=== PATIENT | female | born 1950 | race Caucasian/White ===

== ENCOUNTER 2017-02-10 21:25 | Emergency (ER) | payer BC, MEDICARE, OTHER ==
[2017-02-10 21:41] LABS: BASOPHIL# 0.1 X 10^3uL (0.0-0.1); BASOPHILS 0.5 % (0.0-2.0); EOSINOPHILS 2.4 % (0.0-6.0); EOSINOPHILS# 0.3 X 10^3uL (0.0-0.4); HEMATOCRIT 46.6 % (36.0-48.0); HEMOGLOBIN 15.9 g/dL (12.0-16.0); LYMPHOCYTES 25.3 % (20.0-40.0); LYMPHOCYTES# 3.3 X 10^3uL (0.8-3.8); MEAN CELL VOLUME 81.9 fL (80.0-100.0); MEAN CORPUSCULAR HEMOGLOBIN 27.8 pg (29.0-35.0); MONOCYTES 7.7 % (2.0-10.0); NEUTROPHILS 64.1 % (54.0-75.0); NEUTROPHILS# 8.3 X 10^3uL (2.6-6.7); PLATELET COUNT 375 X 10^3uL (130-440); RED BLOOD COUNT 5.69 X 10^6uL (4.20-6.10); RED CELL DISTRIBUTION WIDTH 15.7 % (11.5-14.5)
[2017-02-10] MEDS ORDERED: ONDANSETRON HCL 4 MG/2 ML VIAL ONE ×2 (21:45→21:49)
[2017-02-10] MEDS ORDERED: FENTANYL 250 MCG/5 ML VIAL ONE (21:46)
[2017-02-10 21:49] LABS: ALBUMIN 4.7 g/dL (3.5-5.0); ALKALINE PHOSPHATASE 132 U/L (38-126); ALT 28 U/L (9-52); AST 24 U/L (14-36); BILIRUBIN, DIRECT 0.3 mg/dL (0.0-0.4); BILIRUBIN, TOTAL 0.5 mg/dL (0.2-1.3); BLOOD UREA NITROGEN 16 mg/dL (7-17); CALCIUM 10.5 mg/dL (8.4-10.2); CHLORIDE 102 mmol/L (98-107); CREATININE 0.7 mg/dL (0.5-1.0); EST GLOMERULAR FILTRATION RATE > 60 mL/min; GLUCOSE 114 mg/dL (70-100); LIPASE 112 U/L (23-300); POTASSIUM 3.9 mmol/L (3.5-5.1); SODIUM 139 mmol/L (137-145); TOTAL PROTEIN 8.5 g/dL (6.3-8.2)
[2017-02-10] MEDS ORDERED: MAG-AL PLUS XS SUSP 30 ML UDC ONE (21:49)
[2017-02-10] MEDS ORDERED: FAMOTIDINE IN SALINE, ISO-OSM 50 ML IV ONE (21:49)
[2017-02-10] MEDS ORDERED: HYDROmorphone HCL 1 MG/ML SYR ONE (21:49)
[2017-02-10] MEDS ORDERED: LIDOCAINE VISCOUS 2% 15 ML UDC ONE (21:50)
[2017-02-10] MEDS ORDERED: LORazepam 1 MG TABLET ONE (22:29)
--- NOTE | 2017-02-10 22:30 | ER PHYSICIAN DOCUMENTATION ---
Physician Documentation [facility] Name:Kelsie Salinas Age:66 yrs Sex:Female :1950 Arrival Date:02/10/2017 Time:21:25 Bed4 Private MD:Pauline Adorno ED, John Disposition: 02/10/17 22:11 Discharged to Home/Self Care. Impression: Gastritis, Gastroenteritis, Dehydration. - Condition is Good. - Discharge Instructions: GASTRITIS (Adult), GASTROENTERITIS, Viral [6y-Adult]. - Prescriptions for Carafate 1 gram Oral Tablet - take 1 tablet by ORAL route 4 times per day take on an empty stomach, beginning on waking and last dose at bedtime; 100 tablet. Zofran 4 mg Oral Tablet - take 1-2 tablet by ORAL route every 4-6 hours As needed; 10 tablet. - Medical Reconciliation form form. - Follow up: Pauline Adorno MD; When: 1 week; Reason: Continuance of care. - Problem is new. - Symptoms have improved. - Notes: Take pepcid 20mg eveyr 12 hours for the next week. HPI: 02/10 21:44 This 66 yrs old Female presents to ER with complaints of jm Nausea/Vomiting/Diarrhea. 21:44 The patient presents to the emergency department with nausea, with vomiting, with jm diarrhea, with associated abdominal pain, of the epigastric area. Onset: The symptom(s)/episode began/occurred just prior to arrival, today. Possible causes: unknown. The symptoms are aggravated by nothing. movement, pressure. Associated signs and symptoms: Pertinent negatives: fever. Severity of symptoms: At their worst the symptoms were incapacitating in the emergency department the symptoms have improved. The patient has not experienced similar symptoms in the past. The patient has not recently seen a physician. 66 yo F who has been dealing w n/v/d for the past 2 days on and off. Today she took some milk of mag thinking it would ease her stomach and instead gave her "projectile diarrhea". She soon had very bad abdominal cramps that caused her call 911. She continues to have pain, but it is much better after fentanyl and zofran. . Historical: - Allergies: Demerol; - Home Meds: 1. Crestor oral - PMHx: HIGH CHOLESTEROL; Distal Tibia Fracture - : Comminuted and OpenRight (September 04, 2016); Distal Fibula Fracture - : Closed, Nondisplaced (September 04, 2016); - PSHx: Multiple Ortho Surgeries on leg; - Tetanus: < 10 years. - Ebola Screening: : Patient negative for fever greater than or equal to 101.5 degrees Fahrenheit, and additional compatible Ebola Virus Disease symptoms. - Immunization history: Flu Vaccine < 1 year. - Social history: Smoking status: Patient states former smoker of tobacco. Vital Signs: 21:30 BP 157 / 80; Pulse 101; Resp 17; Temp 97.9; Pulse Ox 95% on R/A; Weight 56.25 kg; rh Height 5 ft. 2 in. (157.48 cm); Pain 10/10; 22:28 BP 141 / 79; Pulse 98; Resp 15; Pulse Ox 95% on R/A; Pain 0/10; rh 21:30 Body Mass Index 22.68 (56.25 kg, 157.48 cm) rh MDM: 21:33 Patient medically screened. 02/10 21:43 Order name: CBC AUTO DIF, MDIF/RMOR IF IND; Complete Time: 21:58 EDMS 02/10 21:51 Order name: BASIC METABOLIC PANEL; Complete Time: 21:58 EDMS 02/10 21:51 Order name: HEPATIC PANEL; Complete Time: 21:58 EDMS 02/10 21:51 Order name: LIPASE; Complete Time: 21:58 EDMS 02/10 21:33 Order name: NPO; Complete Time: 21:36 Dispensed Medications: 21:36 Drug: NS 0.9% 1000 ml; Route: IV; Rate: bolus; Site: right antecubital; rh 22:13 Follow up: IV Status: Completed infusion; IV Intake: 1000ml rh 21:42 Drug: Zofran 4 mg; Route: IVP; Infused Over: 2 mins; Site: right antecubital; rh 21:48 Follow up: Response: Nausea is decreased rh 21:45 Drug: Dilaudid 0.5 mg; Route: IVP; Site: right antecubital; rh 21:48 Follow up: Response: Pain is decreased rh 21:47 Drug: GI Cocktail w/o Donnatol - (Maalox Suspension 30 ml, Lidocaine Liquid 2 % 15 ml); rh Route: PO; 22:12 Follow up: Response: Marked relief of symptoms rh 21:47 Drug: Pepcid 20 mg; Route: IVPB; Site: right antecubital; rh 22:05 Follow up: IV Status: Completed infusion; IV Intake: 50ml rh 22:27 Drug: Ativan 1mg 1 mg; Route: Sublingual; rh 22:27 Follow up: Response: Pharmacy closed - take home med pack rh Signatures: Wallace Licea MD MD jm Hofsess, Rachel
--- NOTE | 2017-02-10 22:30 | ER NURSING DOCUMENTATION ---
Nurse's Notes [facility] Name:Kelsie Salinas Age:66 yrs Sex:Female :1950 Arrival Date:02/10/2017 Time:21:25 Bed4 Private MD:Pauline Adorno Diagnosis:Gastritis;Gastroenteritis;Dehydration Presentation: 02/10 21:34 Acuity: HAMLET 2 21:49 Presenting complaint: EMS states: N/V/D for one day. Tonight patient took milk of mag rh for her diarrhea and then had severe abdominal cramping soon after. Pt c/o nausea, epigastric pain and diarrhea tonight. Transition of care: Home. 21:49 Method Of Arrival: EMS: 410 rh Triage Assessment: 21:51 General: Appears in no apparent distress, Behavior is cooperative. Pain: Complains of rh pain in epigastric area and right upper quadrant Quality of pain is described as stabbing. EENT: Oral mucosa is dry. Neuro: Level of Consciousness is awake, alert, obeys commands, Oriented to person, place, time, event. Cardiovascular: Capillary refill < 3 seconds Chest pain is denied. Respiratory: Airway is patent Respiratory effort is even, unlabored, Respiratory pattern is regular, symmetrical, Denies shortness of breath. GI: Abdomen is non- distended Bowel sounds present X 4 quads. Abdomen is tender to palpation in epigastric area and right upper quadrant Reports cramping, diarrhea, epigastric pain, nausea, vomiting. : Denies burning with urination. Derm: Skin is intact, is healthy with good turgor, Skin is pink, warm & dry. Musculoskeletal: Circulation, motion, and sensation intact. Historical: - Allergies: Demerol; - Home Meds: 1. Crestor oral - PMHx: HIGH CHOLESTEROL; Distal Tibia Fracture - : Comminuted and OpenRight (September 04, 2016); Distal Fibula Fracture - : Closed, Nondisplaced (September 04, 2016); - PSHx: Multiple Ortho Surgeries on leg; - Tetanus: < 10 years. - Ebola Screening: : Patient negative for fever greater than or equal to 101.5 degrees Fahrenheit, and additional compatible Ebola Virus Disease symptoms. - Immunization history: Flu Vaccine < 1 year. - Social history: Smoking status: Patient states former smoker of tobacco. Screenin:54 Infectious Disease Risk None. Abuse screen: Denies threats or abuse. Denies injuries rh from another. Nutritional screening: No deficits noted. Assessment: 21:54 See Triage Assessment done by same RN. rh Vital Signs: 21:30 BP 157 / 80; Pulse 101; Resp 17; Temp 97.9; Pulse Ox 95% on R/A; Weight 56.25 kg; rh Height 5 ft. 2 in. (157.48 cm); Pain 10/10; 22:28 BP 141 / 79; Pulse 98; Resp 15; Pulse Ox 95% on R/A; Pain 0/10; rh 21:30 Body Mass Index 22.68 (56.25 kg, 157.48 cm) rh ED Course: 21:26 Patient arrived in ED. em2 21:26 Pauline Adorno MD is Private Physician. em2 21:29 Maintain field IV. Site clean & dry. Gauge & site: 18 G R AC. rh 21:30 Notified ED Physician of patient's arrival and chief complaint. Dr. Licea notified. rh 21:32 Door closed. Lights dimmed. Warm blanket given. Pillow given. rh 21:33 Wallace Licea MD is Attending Physician. kalia 21:34 Isha Madsen is Primary Nurse. rh 21:34 Triage completed. rh 21:54 Valuables Remains with patient Patient has correct armband on for positive rh identification. Placed in gown. Bed in low position. Call light in reach. Side rails up X 1. Pulse ox on. Family accompanied patient. 22:11 Pauline Adorno MD is Referral Physician. kalia Administered Medications: 21:36 Drug: NS 0.9% 1000 ml; Route: IV; Rate: bolus; Site: right antecubital; rh 22:13 Follow up: IV Status: Completed infusion; IV Intake: 1000ml rh 21:42 Drug: Zofran 4 mg; Route: IVP; Infused Over: 2 mins; Site: right antecubital; rh 21:48 Follow up: Response: Nausea is decreased rh 21:45 Drug: Dilaudid 0.5 mg; Route: IVP; Site: right antecubital; rh 21:48 Follow up: Response: Pain is decreased rh 21:47 Drug: GI Cocktail w/o Donnatol - (Maalox Suspension 30 ml, Lidocaine Liquid 2 % 15 ml); rh Route: PO; 22:12 Follow up: Response: Marked relief of symptoms rh 21:47 Drug: Pepcid 20 mg; Route: IVPB; Site: right antecubital; rh 22:05 Follow up: IV Status: Completed infusion; IV Intake: 50ml rh 22:27 Drug: Ativan 1mg 1 mg; Route: Sublingual; rh 22:27 Follow up: Response: Pharmacy closed - take home med pack rh Intake: 22:05 IV: 50ml; Total: 50ml. rh 22:13 IV: 1000ml; Total: 1050ml. rh Outcome: 22:11 Discharge ordered by . kalia 22:28 Discharged to home via wheelchair, with friend. 22:28 Condition: improved 22:28 Discharge instructions given to patient, friend, Instructed on discharge instructions, follow up and referral plans. medication usage, Demonstrated understanding of instructions, medications, Prescriptions given X 2. 22:28 IV D/Ned 22:29 Patient left the ED. Signatures: Wallace Licea MD MD jm Meinking-reg, Ellen-reg Isha Castillo
== END 2017-02-10 22:30 | disposition home or self-care (01) ==
LOC: ER 21:25
DX: K29.70 Gastritis, unspecified, without bleeding (principal); K52.89 Other specified noninfective gastroenteritis and colitis; E86.0 Dehydration; Z79.899 Other long term (current) drug therapy
CPT/HCPCS: 80048; 80076; 83690; 85025; 96365; 96375; 99284; J1170; J2405

== ENCOUNTER 2017-02-15 23:03 | Observation (INO) | payer BC, MEDICARE, OTHER ==
[2017-02-15] MEDS ORDERED: FENTANYL 250 MCG/5 ML VIAL ONE (23:24)
[2017-02-15] MEDS ORDERED: FAMOTIDINE IN SALINE, ISO-OSM 50 ML IV ONE (23:34)
[2017-02-15] MEDS ORDERED: LIDOCAINE VISCOUS 2% 15 ML UDC ONE (23:34)
[2017-02-15] MEDS ORDERED: MAG-AL PLUS XS SUSP 30 ML UDC ONE (23:34)
[2017-02-15 23:37] LABS: BASOPHIL# 0.1 X 10^3uL (0.0-0.1); BASOPHILS 0.7 % (0.0-2.0); EOSINOPHILS 3.9 % (0.0-6.0); EOSINOPHILS# 0.4 X 10^3uL (0.0-0.4); HEMATOCRIT 45.5 % (36.0-48.0); HEMOGLOBIN 14.9 g/dL (12.0-16.0); LYMPHOCYTES 31.3 % (20.0-40.0); MEAN CELL VOLUME 82.3 fL (80.0-100.0); MEAN CORPUS. HGB CONCENTRATION 32.8 g/dL (32.0-36.0); MEAN PLATELET VOLUME 8.6 fL (7.4-10.4); MONOCYTES 7.6 % (2.0-10.0); MONOCYTES# 0.7 X 10^3uL (0.2-1.0); NEUTROPHILS 56.5 % (54.0-75.0); NEUTROPHILS# 5.4 X 10^3uL (2.6-6.7); PLATELET COUNT 434 X 10^3uL (130-440); RED BLOOD COUNT 5.52 X 10^6uL (4.20-6.10); RED CELL DISTRIBUTION WIDTH 15.9 % (11.5-14.5); WHITE BLOOD COUNT 9.6 X 10^3uL (3.9-10.7)
[2017-02-15 23:52] LABS: ALBUMIN 4.4 g/dL (3.5-5.0); ALKALINE PHOSPHATASE 133 U/L (38-126); ALT 33 U/L (9-52); AST 23 U/L (14-36); BILIRUBIN, DIRECT 0.1 mg/dL (0.0-0.4); BILIRUBIN, TOTAL 0.4 mg/dL (0.2-1.3); BLOOD UREA NITROGEN 20 mg/dL (7-17); CALCIUM 10.2 mg/dL (8.4-10.2); CHLORIDE 103 mmol/L (98-107); CREATININE 0.6 mg/dL (0.5-1.0); EST GLOMERULAR FILTRATION RATE > 60 mL/min; GLUCOSE 100 mg/dL (70-100); LIPASE 116 U/L (23-300); POTASSIUM 3.8 mmol/L (3.5-5.1); SODIUM 139 mmol/L (137-145); TOTAL PROTEIN 7.8 g/dL (6.3-8.2)
[2017-02-15] MEDS ORDERED: HYDROmorphone HCL 1 MG/ML SYR ONE (23:59)
[2017-02-16] MEDS ORDERED: HYDROmorphone HCL 1 MG/ML SYR ONE ×5 (00:14→14:23)
--- NOTE | 2017-02-16 00:57 | CT REPORT ---
HISTORY: Epigastric pain, distended abdomen for one week. COMPARISON: None. TECHNIQUE: This examination was performed using automated exposure control, adjustment of mA or kV according to patient size, and/or use of iterative reconstruction technique. Multiple contiguous axial images were obtained from the lung bases through the pubic symphysis following administration of intravenous con trast. 100cc Isovue 300 contrast. FINDINGS: The visualized lung parenchyma and cardiac structures are unremarkable. Abdomen/pelvis: The liver is normal in appearance without a mass or evidence of intrahepatic ductal d ilatation. There are multiple calcified gallstones within the gallbladder. The gallbladder is at the upper limits of normal size. The spleen is normal in appearance. There is no pancreatic mass or ductal dilatation. The adrenal glands are unremarkable. The right an d left kidneys are normal in appearance. No mass or hydronephrosis is noted. The stomach and small bowel are unremarkable. There is descending and sigmoid colon diverticulosis bu t there is no focus of acute diverticulitis. There is no abnormally dilated colon. The appendix is no rmal. No significant free fluid is noted. There is no mesenteric edema or inflammatory process. There is minimal aortic atherosclerosis withou t aneurysm. No pathologic adenopathy is identified. There is severe degenerative disc disease at L2 -3. IMPRESSION: 1. Cholelithiasis with gallbladder at upper limit of normal size. Clinical correlation with acute cho lecystitis symptoms is needed. Right upper quadrant ultrasound may provide more information if indica priya clinically. 2. Normal appendix. 3. Colonic diverticulosis. Results were discussed with Dr. Licea at 12:54 AM 02/16/2017. Final Electronic Signature: This report was electronically signed by Ernesto Burns MD on 02/16/2017 12 :54 AM. tparadis /
[2017-02-16] MEDS ORDERED: NALOXONE HCL 0.4 MG/ML VIAL IV PRN ×2 (01:11→12:03)
[2017-02-16] MEDS ORDERED: HOME MEDICATION LIST NEEDED 1 EA EACH MISC ONE (01:11)
[2017-02-16] MEDS ORDERED: DIAZEPAM 10 MG/2 ML SYR ONE (01:22)
[2017-02-16] MEDS ORDERED: NORMAL SALINE 100 ML IV ONE (01:23)
[2017-02-16] MEDS ORDERED: PIPERACILLIN /TAZO 3.375 GM/10 ML VIAL IV ONE (01:23)
[2017-02-16] MEDS ORDERED: NORMAL SALINE 1,000 ML IV SCH ×2 (02:00→12:03)
[2017-02-16] MEDS: HYDROmorphone HCL PCA 6 MG/30 ML PCA.VIAL IV PRN ×2 (02:30→08:48)
--- NOTE | 2017-02-16 02:37 | ER PHYSICIAN DOCUMENTATION ---
Physician Documentation [facility] Name:Kelsie Salinas Age:66 yrs Sex:Female :1950 Arrival Date:02/15/2017 Time:23:03 BedTrauma-C Private MD:Pauline Adorno ED, John Disposition: 02/16/17 01:09 Admit ordered for Dinesh Ramos. Preliminary diagnosis is Cholelithiasis. - Bed requested for Medical/Surgical. - Condition is Fair. - Problem is new. - Symptoms are unchanged. 23 HR OBS Yes HPI: 02/16 01:01 This 66 yrs old Female presents to ER via EMS with complaints of Chest Pain. jm 01:01 The patient or guardian reports chest pain that is located primarily in the epigastric jm area. Onset: today, at 21:00. The pain radiates to There has been no movement of pain. Associated signs and symptoms: Pertinent positives: nausea, vomiting. The chest pain is described as crushing, sharp. Duration: The patient or guardian reports a single episode, that is still ongoing. Modifying factors: the symptoms are aggravated by nothing. Severity of pain: in the emergency department the pain is unchanged. Risk factors for coronary artery disease include: This patient does not have any risk factors for coronary artery disease. The patient has experienced a previous episode, last week, and the symptoms today are exactly the same. The patient has been recently seen at the [facility] Emergency Department, last week, for similar complaints labs were performed, I thought pain was GI related as she got better w GI cocktail. The started up again about 2 hours after the pt scarffed down 2 grilled brats. . Historical: - Allergies: Demerol; - Home Meds: 1. Crestor oral 2. Zoloft Oral 3. Lorazepam Oral 4. gabapentin oral 5. Zofran Oral 6. meloxican 7. Valacyclovir Oral - PMHx: ANXIETY; hyperlipidemia; - Tetanus: < 10 years. - Ebola Screening: : Patient denies exposure to infectious person. Patient denies travel to an Ebola-affected area in the 21 days before illness onset. . - Immunization history: Unable to Obtain. - Social history: Smoking status: Patient states was never smoker of tobacco. Patient uses alcohol occasionally. ROS: 01:04 Constitutional: Negative for fatigue, fever. jm 01:04 Eyes: Negative for pain. 01:04 Cardiovascular: Negative for chest pain, palpitations. 01:04 Respiratory: Negative for cough, shortness of breath. 01:04 Abdomen/GI: Positive for abdominal pain, nausea, vomiting, Negative for diarrhea, constipation. 01:04 Skin: Negative for jaundice. 01:04 Neuro: Negative for dizziness, weakness. 01:04 All other systems are negative. Exam: 01:04 Constitutional: The patient appears alert, awake, anxious, obese. jm 01:04 Eyes: Periorbital structures: appear normal, Conjunctiva: normal. 01:04 ENT: Mouth: is normal, Voice: is normal. 01:04 Cardiovascular: Rate: 01:04 Cardiovascular: Rate: tachycardic, Rhythm: regular. 01:04 Respiratory: Respirations: normal, Breath sounds: are normal. 01:04 Abdomen/GI: Bowel sounds: normal, Palpation: severe abdominal tenderness, in the epigastric area and right upper quadrant. 01:04 Back: ROM is normal, CVA tenderness, is absent. 01:04 Musculoskeletal/extremity: DVT Exam: No signs of deep vein thrombosis. Calves: are non-tender, have equal circumference. 01:04 Skin: Appearance: Color: pink, no rash present. 01:04 Neuro: Mentation: is normal, Memory: is normal. 01:04 Psych: Behavior/mood is pleasant, cooperative, Affect is calm. Vital Signs: 02/15 23:32 BP 148 / 84; Pulse 95; Resp 20; Pulse Ox 95% on R/A; Weight 49.9 kg; Height 5 ft. 3 in. lb (160.02 cm); Pain 8/10; 02/16 00:07 BP 158 / 79; Pulse 93; Resp 20; Pulse Ox 93% on R/A; lb 00:47 BP 153 / 82; Pulse 99; Resp 18; Pulse Ox 92% on R/A; Pain 7/10; lb 01:34 BP 165 / 91; Pulse 104; Resp 22; Pulse Ox 95% on R/A; Pain 4/10; lb 01:43 Temp 98; lb 02:35 BP 156 / 88; Pulse 90; Resp 19; Pulse Ox 94% on R/A; Pain 5/10; lb 02/15 23:32 Body Mass Index 19.49 (49.90 kg, 160.02 cm) lb MDM: 02/15 23:35 EKG attached lb 23:40 Patient medically screened. 02/16 01:06 Differential diagnosis: chest wall pain, cholecystitis, Cholelithiasis gastritis, jm gastroesophageal reflux disease (GERD), pancreatitis, peptic ulcer disease. Data reviewed: vital signs, nurses notes, old medical records, lab test result(s), EKG, radiologic studies, and as a result, I will admit patient. Test interpretation: by ED physician or midlevel provider: ECG. Counseling: I had a detailed discussion with the patient and/or guardian regarding: the historical points, exam findings, and any diagnostic results supporting the discharge/admit diagnosis, lab results, radiology results, the need for further work-up and treatment in the hospital. ECG:. Medication response: The patient's symptoms have improved, Dilaudid. Physician consultation: Dinesh Ramos MD regarding admission, and will see patient in the AM. ED course: Pt is excruciating pain. Hard to control. Multiple round of Dilaudid given. CT shows evidence of chololithiases w gall bladder on the upper limit of normal. I feel this is source for pain. Pt got no relief from GI cocktail and labs normal. I spoke w Dr. Ramos. He will see her in the AM and decide if she needs surgery. . 02/15 23:43 Order name: CBC AUTO DIF, MDIF/RMOR IF IND; Complete Time: 23:55 EDMS 02/15 23:55 Order name: BASIC METABOLIC PANEL; Complete Time: 23:55 EDMS 02/15 23:55 Order name: HEPATIC PANEL; Complete Time: 23:55 EDMS 02/15 23:55 Order name: LIPASE; Complete Time: 23:55 EDMS 02/16 00:01 Order name: H PYLORI IGG ANTIBODY; Complete Time: 00:57 EDMS 02/16 00:58 Order name: CAT SCAN; ABD/PEL W [id number] EDMS EC:06 Rhythm is regular. QRS [place] is Normal. OK interval is normal. QRS interval is normal. QT interval is normal. T waves are Normal. No ST changes noted. Dispensed Medications: 02/15 23:28 Drug: GI Cocktail w/o Donnatol - (Maalox Suspension 30 ml, Lidocaine Liquid 2 % 15 ml); lb Route: PO; 23:56 Follow up: Response: No change in condition lb 23:28 Drug: Pepcid 20 mg; Route: IVPB; Site: right antecubital; lb 23:56 Follow up: IV Status: Completed infusion; IV Intake: 50ml lb 23:57 Follow up: Response: No change in condition lb 23:50 Drug: Dilaudid 1 mg; Route: IVP; Site: right antecubital; lb 02/16 00:07 Follow up: Response: Pain is unchanged, physician notified lb 00:06 Drug: Dilaudid 1 mg; Route: IVP; Site: right antecubital; lb 00:46 Follow up: Response: No change in condition lb 00:47 Drug: Dilaudid 1 mg; Route: IVP; Site: right antecubital; lb 01:33 Follow up: Response: Pain is decreased lb 01:18 Drug: Dilaudid 1 mg; Route: IVP; Site: right antecubital; lb 01:33 Follow up: Response: Pain is decreased lb 01:19 Drug: Valium 5 mg; Route: IVP; Site: right antecubital; lb 01:33 Follow up: Response: Anxiety decreased lb 01:32 Drug: Zosyn 3.375 grams; Route: IVPB; Site: right antecubital; lb 01:56 Follow up: Response: No adverse reaction; IV Status: Completed infusion; IV Intake: lb 100ml 01:33 Drug: NS 0.9% 500 ml; Route: IV; Rate: bolus; Site: right antecubital; lb 02:34 Follow up: IV Status: Infusion continued upon admission; IV Intake: 500ml lb 02:02 Drug: Dilaudid 1 mg; Route: IVP; Site: right antecubital; lb 02:34 Follow up: Response: Pain is decreased lb Signatures: Wallace Licea MD MD jm Bollock, Lynda lb
--- NOTE | 2017-02-16 02:37 | ER NURSING DOCUMENTATION ---
Nurse's Notes [facility] Name:Kelsie Salinas Age:66 yrs Sex:Female :1950 Arrival Date:02/15/2017 Time:23:03 BedTrauma-C Private MD:Pauline Adorno Diagnosis:Cholelithiasis Presentation: 02/15 23:19 Acuity: HAMLET 3 lb 23:29 Presenting complaint: Patient states: epigastric pain that started suddenly at 9pm. c/o lb nausea, headache. Transition of care: Home. AIR CAT ACTIVATION no. Asprin Given n/a. Notified ED Physician of Vinayak Fields notified. Care prior to arrival: Medication(s) given: Fentanyl 100MCG. 23:29 Method Of Arrival: EMS: 410 lb Triage Assessment: 23:32 General: Appears distressed, uncomfortable, Behavior is anxious. Pain: Complains of lb pain in diaphragm Pain does not radiate. Pain currently is 8 out of 10 on a pain scale. Cardiovascular: No deficits noted. Historical: - Allergies: Demerol; - Home Meds: 1. Crestor oral 2. Zoloft Oral 3. Lorazepam Oral 4. gabapentin oral 5. Zofran Oral 6. meloxican 7. Valacyclovir Oral - PMHx: ANXIETY; hyperlipidemia; - Tetanus: < 10 years. - Ebola Screening: : Patient denies exposure to infectious person. Patient denies travel to an Ebola-affected area in the 21 days before illness onset. . - Immunization history: Unable to Obtain. - Social history: Smoking status: Patient states was never smoker of tobacco. Patient uses alcohol occasionally. Screenin:33 Infectious Disease Risk None. Abuse screen: Denies threats or abuse. Denies injuries lb from another. Nutritional screening: No deficits noted. Assessment: 23:33 See Triage Assessment done by same RN. Pain: Pain began 2 hours ago. lb 23:33 Pain: Complains of pain in diaphragm. lb Vital Signs: 23:32 BP 148 / 84; Pulse 95; Resp 20; Pulse Ox 95% on R/A; Weight 49.9 kg; Height 5 ft. 3 in. lb (160.02 cm); Pain 8/10; 02/16 00:07 BP 158 / 79; Pulse 93; Resp 20; Pulse Ox 93% on R/A; lb 00:47 BP 153 / 82; Pulse 99; Resp 18; Pulse Ox 92% on R/A; Pain 7/10; lb 01:34 BP 165 / 91; Pulse 104; Resp 22; Pulse Ox 95% on R/A; Pain 4/10; lb 01:43 Temp 98; lb 02:35 BP 156 / 88; Pulse 90; Resp 19; Pulse Ox 94% on R/A; Pain 5/10; lb 02/15 23:32 Body Mass Index 19.49 (49.90 kg, 160.02 cm) lb ED Course: 02/15 23:03 Patient arrived in ED. ma1 23:03 Pauline Adorno MD is Private Physician. ma1 23:19 Angeles Patel is Primary Nurse. lb 23:20 Triage completed. lb 23:33 Valuables Remains with patient. Cardiac Monitoring On for Nurse Monitoring only. Pulse lb Ox - RN Monitoring Only NIBP On - RN Monitoring Only. 23:34 EKG done per protocol. Performed by ED Staff. lb 23:35 EKG attached lb 23:40 Wallace Licea MD is Attending Physician. kalia 02/16 00:16 Patient moved to MRI. Patient moved to CT. pm1 00:[address] pm1 01:08 Dinesh Ramos MD is Admitting Physician. Administered Medications: 02/15 23:28 Drug: GI Cocktail w/o Donnatol - (Maalox Suspension 30 ml, Lidocaine Liquid 2 % 15 ml); lb Route: PO; 23:56 Follow up: Response: No change in condition lb 23:28 Drug: Pepcid 20 mg; Route: IVPB; Site: right antecubital; lb 23:56 Follow up: IV Status: Completed infusion; IV Intake: 50ml lb 23:57 Follow up: Response: No change in condition lb 23:50 Drug: Dilaudid 1 mg; Route: IVP; Site: right antecubital; lb 02/16 00:07 Follow up: Response: Pain is unchanged, physician notified lb 00:06 Drug: Dilaudid 1 mg; Route: IVP; Site: right antecubital; lb 00:46 Follow up: Response: No change in condition lb 00:47 Drug: Dilaudid 1 mg; Route: IVP; Site: right antecubital; lb 01:33 Follow up: Response: Pain is decreased lb 01:18 Drug: Dilaudid 1 mg; Route: IVP; Site: right antecubital; lb 01:33 Follow up: Response: Pain is decreased lb 01:19 Drug: Valium 5 mg; Route: IVP; Site: right antecubital; lb 01:33 Follow up: Response: Anxiety decreased lb 01:32 Drug: Zosyn 3.375 grams; Route: IVPB; Site: right antecubital; lb 01:56 Follow up: Response: No adverse reaction; IV Status: Completed infusion; IV Intake: lb 100ml 01:33 Drug: NS 0.9% 500 ml; Route: IV; Rate: bolus; Site: right antecubital; lb 02:34 Follow up: IV Status: Infusion continued upon admission; IV Intake: 500ml lb 02:02 Drug: Dilaudid 1 mg; Route: IVP; Site: right antecubital; lb 02:34 Follow up: Response: Pain is decreased lb Intake: 02/15 23:56 IV: 50ml; Total: 50ml. lb 02/16 01:56 IV: 100ml; Total: 150ml. lb 02:34 IV: 500ml; Total: 650ml. lb Outcome: 01:09 Decision to Admit by Provider. kalia 02:35 Admitted to Med/surg accompanied by nurse, via stretcher. lb 02:35 Condition: stable 02:35 Report given to Yudith KENNY 02:35 Discharge Assessment: Patient awake, alert and oriented x 3. No cognitive and/or functional deficits noted. Patient verbalized understanding of disposition instructions. 02:35 Instructed on need to admit 02:36 Patient left the ED. lb Signatures: Wallace Licea MD MD jm McBride, Philisha pm1 Angeles Patel Melissa ma1
[2017-02-16] MEDS: ONDANSETRON HCL 4 MG/2 ML VIAL IV ONE ×2 (06:29→06:50)
[2017-02-16] MEDS ORDERED: ONDANSETRON HCL 4 MG/2 ML VIAL ONE ×2 (06:30→14:58)
[2017-02-16] MEDS ORDERED: LORazepam 2 MG/ML INJ IV PRN ×2 (10:06→12:03)
[2017-02-16] MEDS ORDERED: ONDANSETRON HCL 4 MG/2 ML VIAL IV ONE ×2 (11:44→12:03)
[2017-02-16] MEDS ORDERED: LIDOCAINE HCL 1% 20 ML VIAL SUBCUT ONE ×2 (11:44→12:03)
[2017-02-16] MEDS ORDERED: FAMOTIDINE IN SALINE, ISO-OSM 20 MG/50 ML PIGGYBACK IV SCH ×2 (11:45→12:03)
[2017-02-16] MEDS ORDERED: NORMAL SALINE MINI IV ONE (11:52)
[2017-02-16] MEDS ORDERED: CEFAZOLIN IV ONE (11:52)
[2017-02-16] MEDS ORDERED: LACTATED RINGERS 1,000 ML IV SCH (12:00)
[2017-02-16] MEDS ORDERED: HYDROmorphone HCL PCA 6 MG/30 ML PCA.VIAL IV PRN (12:03)
[2017-02-16] MEDS ORDERED: MORPHINE SULFATE 2 MG/ML SYR IV PRN (12:03)
[2017-02-16] MEDS ORDERED: ONDANSETRON ODT 4 MG TAB.RAPDIS PO PRN (12:03)
[2017-02-16] MEDS ORDERED: HYDROcodone/APAP 10/325 MG 1 TAB TABLET PO PRN (12:03)
[2017-02-16] MEDS ORDERED: ceFAZolin/DEXTROSE,ISO 2 GM/50 ML PIGGYBACK IV ONE ×2 (12:04→13:00)
[2017-02-16] MEDS ORDERED: FENTANYL 250 MCG/5 ML VIAL ONE (12:22)
[2017-02-16] MEDS ORDERED: DEXAMETHASONE 4 MG/ML VIAL ONE (12:22)
[2017-02-16] MEDS ORDERED: SUCCINYLCHOLINE CHLORIDE 200 MG/10 ML VIAL ONE (12:22)
[2017-02-16] MEDS ORDERED: ROCURONIUM BROMIDE 50 MG/5 ML VIAL IV ONE (12:22)
[2017-02-16] MEDS ORDERED: LIDOCAINE HCL 2% 20 ML VIAL ONE (12:22)
[2017-02-16] MEDS ORDERED: BUPIVACAINE/EPI 0.25% 1 VIAL VIAL ONE (12:30)
[2017-02-16] MEDS ORDERED: SUGAMMADEX SODIUM 200 MG/2 ML VIAL IV ONE (13:39)
[2017-02-16] MEDS ORDERED: DESFLURANE 240 ML BTL INHALATION ONE (13:57)
[2017-02-16] MEDS ORDERED: METOCLOPRAMIDE HCL 10 MG/2 ML VIAL IV ONE (14:10)
[2017-02-16] MEDS ORDERED: KETOROLAC TROMETHAMINE 30 MG/ML VIAL ONE (14:24)
[2017-02-16] MEDS ORDERED: METOCLOPRAMIDE HCL 10 MG/2 ML VIAL ONE (14:26)
[2017-02-16] MEDS ORDERED: HYDROmorphone HCL 1 MG/ML SYR IV PRN (14:50)
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
[2017-02-16] MEDS ORDERED: ONDANSETRON HCL 4 MG/2 ML VIAL IV PRN (14:54)
[2017-02-16] MEDS ORDERED: KETOROLAC TROMETHAMINE 30 MG/ML VIAL IV ONE (14:54)
--- NOTE | 2017-02-16 15:25 | OPERATIVE REPORT ---
DATE OF SURGERY: 02/16/17 SURGEON: Dinesh Ramos MD PREOPERATIVE DIAGNOSIS: Acute cholecystitis. POSTOPERATIVE DIAGNOSIS: Acute cholecystitis. Large stone lodged in the neck of the gallbladder. Significant edema and scarring making the anatomy difficult. PROCEDURE PERFORMED 1. Laparoscopic cholecystectomy. 2. Drain placement to the abdomen. DESCRIPTION OF PROCEDURE: The patient was given a general anesthetic. She was prepped and draped in sterile fashion. Local was placed in the port sites. An opening was made through the umbilicus. A blunt dilating trocar was gently inserted away from vasculature without injury. The abdomen was inflated to 50 mm of pressure. Additional trocars were then placed in the epigastrium at 12 and 2 right subcostal 5 mm ports. The gallbladder was grasped and elevated over the liver edge and the neck of the gallbladder was retracted lateral somewhat inferior to open up the hepatocystic triangle. This was difficult due to the fact the graspers were not holding well and had to be repeatedly regrasped. In addition, the tissues were very thickened, scarred and edematous and this di make the anatomy was very difficult. I spent some time carefully dissecting this area in a blunt fashion. The artery was identified and this was controlled with the Harmonic scalpel. I noted a duct going into the gallbladder that was about 10 mm in size , but I could not tell if it would continue to the liver and be the right hepatic due to the scarring still present on the medial side of the neck of the gallbladder. At that point I elected to take the gallbladder down retrograde to confirm the anatomy. The gallbladder was removed opening up the thick peel and retracting the gallbladder inferiorly and laterally until it was skinnied down to the neck and I could not note any other ductal structures other than the one I previously identified. At that point 3 clips were placed. These just did cover the entire duct and the gallbladder was divided and at that point I could see we were flush with the gallbladder and there was a stone present directly visible right at that location that was lodged into the neck of the gallbladder. The gallbladder was placed into a sack and retrieved and sent to pathology. Several liters of irrigation were then utilized until it was clear oozing from the bed had stopped on its own and no further bleeding was noted. blood loss was 70 cc. A drain was brought out through the lateral incision and placed in Morrisons pouch in the subhepatic region and tied in with a silk suture. The abdomen was then deflated. The port sites were closed at the larger sites with a deep Vicryl and a 4-0 Monocryl for the skin layers. She remained stable throughout the case although she did require additional anesthetic during the case. She was taken to the recovery room in stable condition. AVILA
[2017-02-16] MEDS: LORazepam 1 MG TABLET PO SCH ×2 (17:33→20:07)
[2017-02-16] MEDS: GABAPENTIN 300 MG CAPSULE PO SCH ×2 (17:33→20:07)
[2017-02-16] MEDS: LACTATED RINGERS 1,000 ML IV SCH (18:51)
[2017-02-16] MEDS: HYDROcodone/APAP 5/325 MG 1 TAB TABLET PO PRN (20:07)
[2017-02-17] MEDS: ACETAMINOPHEN 325 MG TABLET PO PRN (02:27)
[2017-02-17] MEDS ORDERED: ACETAMINOPHEN 325 MG TABLET PO ONE (02:34)
[2017-02-17] MEDS: LACTATED RINGERS 1,000 ML IV SCH (03:02)
[2017-02-17] MEDS: HYDROcodone/APAP 5/325 MG 1 TAB TABLET PO PRN (07:45)
[2017-02-17] MEDS: LORazepam 1 MG TABLET PO SCH (09:45)
[2017-02-17] MEDS: GABAPENTIN 300 MG CAPSULE PO SCH ×3 (09:45→20:28)
[2017-02-17] MEDS: SERTRALINE HCL 50 MG TABLET PO SCH (09:45)
[2017-02-17] MEDS ORDERED: MAGNESIUM HYDROXIDE 30 ML UDC PO PRN (09:51)
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
[2017-02-17] MEDS: MELOXICAM 7.5 MG TABLET PO SCH (10:20)
[2017-02-17] MEDS ORDERED: LORazepam 0.5 MG TABLET PO PRN (11:46)
[2017-02-17] MEDS ORDERED: SENNOSIDES/DOCUSATE SODIUM 1 TAB TABLET PO ONE (18:35)
[2017-02-17] MEDS: SENNOSIDES/DOCUSATE SODIUM 1 TAB TABLET PO SCH (20:27)
[2017-02-18 05:37] VITALS: BP 129/61; PULSE 92; RESP 17; TEMP 97.5
[2017-02-18] MEDS: ACETAMINOPHEN 325 MG TABLET PO PRN ×2 (05:37→09:23)
[2017-02-18] MEDS: MELOXICAM 7.5 MG TABLET PO SCH (09:16)
[2017-02-18] MEDS: GABAPENTIN 300 MG CAPSULE PO SCH (09:20)
[2017-02-18] MEDS: SENNOSIDES/DOCUSATE SODIUM 1 TAB TABLET PO SCH (09:22)
[2017-02-18] MEDS: SERTRALINE HCL 50 MG TABLET PO SCH (09:24)
[2017-02-18 09:37] VITALS: O2SAT 94
--- NOTE | 2017-02-18 10:04 | DC SUMMARY: Gen Surgery Note ---
Discharge Summary: Surg/OB Provider: Date of Admission: 02/16/17 Admitting Provider: SCAR GERER MD Attending Provider: SCAR GREER MD Discharging Provider: TAIWO ARRINGTON MD Primary Care Provider: Discharge Date: 02/18/17 - Diagnosis (1) Postoperative ileus Status: Resolved (2) Type I or II open fracture of right tibial plafond with fibula involvement Status: Resolved Qualifiers: (3) Stress incontinence of urine Status: Chronic Hospital Course: Ms. YUN is a 66 year old female admitted with acute cholecystitis on 02/16/17. She underwent lap. choly on . She had problems with pain control on 02/17/17 but was able to tolerate po pain meds and began to move her bowels. She will be discharged today with a FADY drain in place. She will follow up with me on 02/18/17. Discharge - Patient/Caregiver Discharge Instructions Activity Level: No lifting over 20 pounds Diet: As tolerated Additional Instructions: Empty the drain as needed. Follow up: TAIWO ARRINGTON MD [ACTIVE (Staff Physician)] - 02/20/17 2:30 pm Overall discharge status: patient is progressing back to baseline Home Medications: oxyCODONE HCL IR [Oxy Ir*] 5 - 10 mg PO Q3H PRN #20 tablet PRN Reason: Pain, Severe Able To Take Po Care Plan Goals: Dr. Arrington's Post-Op Instructions POST SURGERY HOME CARE INSTRUCTIONS Activity: After you arrive home try to be up and moving about, walking, as much as you can comfortably tolerate. Approach going up or down stairs with care. Riding in a car is all right, but avoid driving until your ability is no longer impaired from the surgery or medication. You will tire easily after surgery, but may increase activity gradually each day. Avoid lifting over 20 pounds for the first six weeks. If you have laparoscopic surgery you may get additional instructions. Diet: Normal foods may be eaten after surgery unless you have been otherwise instructed to consume a specific diet. It is essential to consume plenty of fluids throughout the day. Dressings: You will leave the hospital with a pressure dressing over the incision site. Leave this dressing on for 24 hours. After 24 hours, you may remove the dressing. Underneath you may have a clear plastic dressing over the incision, or steri-strips, which should be left on until your first postop visit. You may shower once the 24 hour dressing is removed. Incision: It takes approximately six weeks for the tissue surrounding your incision to heal solidly. You may notice hardness around or under your incision , which is normal and will disappear over time. Pain Management: You may be given a prescription for pain medication to take home. Most likely you will need these for two to three days following your surgery. After which you can probably use Tylenol or ibuprofen for the discomfort. Patients who have had abdominal surgery may incur gas pains as their bowel function increases. Relieve this by walking, using anti-gas medications such as Mylicon and/or placing a heating pad on the abdomen. Pain rarely lasts more than a day or two but if it persists, please call the office. Bowel function: Exercise and drinking plenty of fluid will help prevent constipation. You may also elect to use a mild laxative unless you have been instructed not to. Patients who have had stomach surgery should ask before using a laxative. If stools tend to be firm, Dr. Arrington may suggest a stool softener such as Senokot-S. Take one or two daily. These can be purchased over the counter without a prescription. After leaving the hospital: Please call if you have any questions or if you notice any of the following: Chills and/or Fever: A low-grade fever is a normal body reaction to surgery; however, if it elevates over 100 degrees call the hospital Fainting or Dizziness: Slight dizziness is normal for the first week when getting out of bed or sitting up quickly. Vomiting or Persistent Diarrhea: Soft stool is normal for a few weeks after surgery but if persists call the hospital If you have a problem, please call [facility] at [phone]. Office hours are Friday through Friday 8 am to5 pm. If you have a problem outside of these hours, help can be reached through the hospital charge nurse at ([phone]). If no one answers, please leave your name and number and expect a return phone call in 30 minutes. 1. Medical reason for no anticoagulation order on D/C?: Treatment not indicated 2. Medical reason for no anticoag overlap on D/C?: Treatment not indicated Gen Surgery: Discharge Exam - Latest Vital Signs and I&O Latest Vital Signs/I&O: Vital Signs Temp 36.4 C L 02/18/17 05:35 Pulse 92 H 02/18/17 05:35 Resp 17 02/18/17 09:00 BP 129/61 02/18/17 05:35 Pulse Ox 94 02/18/17 09:00 Intake & Output 02/17/17 02/18/17 02/18/17 17:59 05:59 17:59 Intake Total 1080 220 Output Total 955 530 Balance 125 -310 Intake: Oral 1080 220 Output: Drainage 55 30 Anterior Medial Abdomen 55 30 Urine 900 500 Other: Urine Appearance Clear Clear Clear Urine Color Pale Yellow Yellow Yellow Voiding Method Toilet Toilet Toilet # Voids 1 # Bowel Movements 0 - Exam General physical exam: well nourished, no distress Respiratory exam: clear to auscultation Abdomen exam: tender, bowel sounds (active), other (FADY with serous drainage and clots) Discharge Summary Data - Medication History Medication History: Home Medications Rosuvastatin Calcium [Crestor] 5 mg PO DAILY 09/05/16 Acetaminophen [Tylenol*] 650 mg PO Q6H PRN #0 tablet 09/09/16 Magnesium Hydroxide [Milk of Magnesia*] 30 ml PO DAILY PRN #0 udc 09/09/16 Multivitamins,Therapeutic [Thera Multivitamin*] 1 tab PO DAILY tablet 09/09/16 Ondansetron Odt [Zofran Odt*] 4 mg PO Q6H PRN #0 tab.rapdis 09/09/16 Gabapentin [Neurontin*] 300 mg PO TID 02/16/17 LORazepam [Ativan*] 2 mg PO TID 02/16/17 Sennosides/Docusate Sodium [Analy-Colace Tablet*] 2 tab PO HS PRN 02/16/17 Sertraline HCl [Zoloft*] 50 mg PO DAILY 02/16/17 Inpatient Medications 02/16/17 12:03 Morphine Sulfate 1 - 2 mg IV Q2H PRN Ondansetron Odt [Zofran Odt] 4 mg PO Q6H PRN 02/16/17 15:00 Gabapentin [Neurontin] 300 mg PO TID 02/17/17 02:25 Acetaminophen [Tylenol] 325 - 650 mg PO Q4H PRN 02/17/17 09:00 Sertraline HCl [Zoloft] 50 mg PO DAILY 02/17/17 09:51 Magnesium Hydroxide [Milk of Magnesia] 30 ml PO DAILY PRN 02/17/17 10:00 Meloxicam [Mobic] 15 mg PO DAILY 02/17/17 11:45 oxyCODONE HCL IR [Oxy Ir] 5 - 10 mg PO Q3H PRN 02/17/17 11:46 LORazepam [Ativan] 1 mg PO Q8H PRN 02/17/17 19:00 Sennosides/Docusate Sodium [Analy-Colace] 1 tab PO DAILY Procedures and tests throughout hospitalization: Pending Orders 02/16/17 01:11 Admit: Observation Routine Activity: Ambulate TID 02/16/17 01:13 Oxygen by Nasal Cannula 2 L/MIN 02/16/17 10:05 SCD's [Sequential Compression Device] WHILE IN BED 02/16/17 12:03 Morphine Sulfate 1 - 2 mg IV Q2H PRN Ondansetron Odt [Zofran Odt] 4 mg PO Q6H PRN 02/16/17 15:00 Gabapentin [Neurontin] 300 mg PO TID 02/16/17 17:16 Vital Signs ROUTINE VITALS (Q4H) 02/17/17 02:25 Acetaminophen [Tylenol] 325 - 650 mg PO Q4H PRN 02/17/17 09:00 Sertraline HCl [Zoloft] 50 mg PO DAILY 02/17/17 09:51 Magnesium Hydroxide [Milk of Magnesia] 30 ml PO DAILY PRN 02/17/17 10:00 Meloxicam [Mobic] 15 mg PO DAILY 02/17/17 10:03 Advance diet as tolerated . Physical Therapy Eval and Treatment [PT] Routine 02/17/17 11:45 oxyCODONE HCL IR [Oxy Ir] 5 - 10 mg PO Q3H PRN 02/17/17 11:46 LORazepam [Ativan] 1 mg PO Q8H PRN 02/17/17 19:00 Sennosides/Docusate Sodium [Analy-Colace] 1 tab PO DAILY 02/17/17 Lunch Regular [DIET]
--- NOTE | 2017-02-18 10:09 | DC SUMMARY: Gen Surgery Note ---
Discharge Summary: Surg/OB Provider: Date of Admission: 02/16/17 Admitting Provider: SCAR GREER MD Attending Provider: SCAR GREER MD Discharging Provider: TAIWO ARRINGTON MD Primary Care Provider: Discharge Date: 02/18/17 - Diagnosis (1) Postoperative ileus Status: Resolved (2) Type I or II open fracture of right tibial plafond with fibula involvement Status: Resolved Qualifiers: (3) Stress incontinence of urine Status: Chronic Hospital Course: Ms. YUN is a 66 year old female Discharge - Patient/Caregiver Discharge Instructions Activity Level: No lifting over 20 pounds Diet: As tolerated Additional Instructions: Empty the drain as needed. Follow up: TAIWO ARRINGTON MD [ACTIVE (Staff Physician)] - 02/20/17 2:30 pm Home Medications: oxyCODONE HCL IR [Oxy Ir*] 5 - 10 mg PO Q3H PRN #20 tablet PRN Reason: Pain, Severe Able To Take Po Care Plan Goals: Dr. Arrington's Post-Op Instructions POST SURGERY HOME CARE INSTRUCTIONS Activity: After you arrive home try to be up and moving about, walking, as much as you can comfortably tolerate. Approach going up or down stairs with care. Riding in a car is all right, but avoid driving until your ability is no longer impaired from the surgery or medication. You will tire easily after surgery, but may increase activity gradually each day. Avoid lifting over 20 pounds for the first six weeks. If you have laparoscopic surgery you may get additional instructions. Diet: Normal foods may be eaten after surgery unless you have been otherwise instructed to consume a specific diet. It is essential to consume plenty of fluids throughout the day. Dressings: You will leave the hospital with a pressure dressing over the incision site. Leave this dressing on for 24 hours. After 24 hours, you may remove the dressing. Underneath you may have a clear plastic dressing over the incision, or steri-strips, which should be left on until your first postop visit. You may shower once the 24 hour dressing is removed. Incision: It takes approximately six weeks for the tissue surrounding your incision to heal solidly. You may notice hardness around or under your incision , which is normal and will disappear over time. Pain Management: You may be given a prescription for pain medication to take home. Most likely you will need these for two to three days following your surgery. After which you can probably use Tylenol or ibuprofen for the discomfort. Patients who have had abdominal surgery may incur gas pains as their bowel function increases. Relieve this by walking, using anti-gas medications such as Mylicon and/or placing a heating pad on the abdomen. Pain rarely lasts more than a day or two but if it persists, please call the office. Bowel function: Exercise and drinking plenty of fluid will help prevent constipation. You may also elect to use a mild laxative unless you have been instructed not to. Patients who have had stomach surgery should ask before using a laxative. If stools tend to be firm, Dr. Arrington may suggest a stool softener such as Senokot-S. Take one or two daily. These can be purchased over the counter without a prescription. After leaving the hospital: Please call if you have any questions or if you notice any of the following: Chills and/or Fever: A low-grade fever is a normal body reaction to surgery; however, if it elevates over 100 degrees call the hospital Fainting or Dizziness: Slight dizziness is normal for the first week when getting out of bed or sitting up quickly. Vomiting or Persistent Diarrhea: Soft stool is normal for a few weeks after surgery but if persists call the hospital If you have a problem, please call [facility] at [phone]. Office hours are Friday through Friday 8 am to5 pm. If you have a problem outside of these hours, help can be reached through the hospital charge nurse at ). If no one answers, please leave your name and number and expect a return phone call in 30 minutes. Disposition: HOME, SELF-CARE Gen Surgery: Discharge Exam - Latest Vital Signs and I&O Latest Vital Signs/I&O: Vital Signs Temp 36.4 C L 02/18/17 05:35 Pulse 92 H 02/18/17 05:35 Resp 17 02/18/17 09:00 BP 129/61 02/18/17 05:35 Pulse Ox 94 02/18/17 09:00 Intake & Output 02/17/17 02/18/17 02/18/17 17:59 05:59 17:59 Intake Total 1080 220 Output Total 955 530 Balance 125 -310 Intake: Oral 1080 220 Output: Drainage 55 30 Anterior Medial Abdomen 55 30 Urine 900 500 Other: Urine Appearance Clear Clear Clear Urine Color Pale Yellow Yellow Yellow Voiding Method Toilet Toilet Toilet # Voids 1 # Bowel Movements 0 - Exam Respiratory exam: clear to auscultation Abdomen exam: tender, bowel sounds (active), other (FADY with serous drainage and clots) Discharge Summary Data - Medication History Medication History: Home Medications Rosuvastatin Calcium [Crestor] 5 mg PO DAILY 09/05/16 Acetaminophen [Tylenol*] 650 mg PO Q6H PRN #0 tablet 09/09/16 Magnesium Hydroxide [Milk of Magnesia*] 30 ml PO DAILY PRN #0 udc 09/09/16 Multivitamins,Therapeutic [Thera Multivitamin*] 1 tab PO DAILY tablet 09/09/16 Ondansetron Odt [Zofran Odt*] 4 mg PO Q6H PRN #0 tab.rapdis 09/09/16 Gabapentin [Neurontin*] 300 mg PO TID 02/16/17 LORazepam [Ativan*] 2 mg PO TID 02/16/17 Sennosides/Docusate Sodium [Analy-Colace Tablet*] 2 tab PO HS PRN 02/16/17 Sertraline HCl [Zoloft*] 50 mg PO DAILY 02/16/17 oxyCODONE HCL IR [Oxy Ir*] 5 - 10 mg PO Q3H PRN #20 tablet 02/18/17 Inpatient Medications 02/16/17 12:03 Morphine Sulfate 1 - 2 mg IV Q2H PRN Ondansetron Odt [Zofran Odt] 4 mg PO Q6H PRN 02/16/17 15:00 Gabapentin [Neurontin] 300 mg PO TID 02/17/17 02:25 Acetaminophen [Tylenol] 325 - 650 mg PO Q4H PRN 02/17/17 09:00 Sertraline HCl [Zoloft] 50 mg PO DAILY 02/17/17 09:51 Magnesium Hydroxide [Milk of Magnesia] 30 ml PO DAILY PRN 02/17/17 10:00 Meloxicam [Mobic] 15 mg PO DAILY 02/17/17 11:45 oxyCODONE HCL IR [Oxy Ir] 5 - 10 mg PO Q3H PRN 02/17/17 11:46 LORazepam [Ativan] 1 mg PO Q8H PRN 02/17/17 19:00 Sennosides/Docusate Sodium [Analy-Colace] 1 tab PO DAILY Procedures and tests throughout hospitalization: Pending Orders 02/16/17 01:11 Admit: Observation Routine Activity: Ambulate TID 02/16/17 01:13 Oxygen by Nasal Cannula 2 L/MIN 02/16/17 10:05 SCD's [Sequential Compression Device] WHILE IN BED 02/16/17 12:03 Morphine Sulfate 1 - 2 mg IV Q2H PRN Ondansetron Odt [Zofran Odt] 4 mg PO Q6H PRN 02/16/17 15:00 Gabapentin [Neurontin] 300 mg PO TID 02/16/17 17:16 Vital Signs ROUTINE VITALS (Q4H) 02/17/17 02:25 Acetaminophen [Tylenol] 325 - 650 mg PO Q4H PRN 02/17/17 09:00 Sertraline HCl [Zoloft] 50 mg PO DAILY 02/17/17 09:51 Magnesium Hydroxide [Milk of Magnesia] 30 ml PO DAILY PRN 02/17/17 10:00 Meloxicam [Mobic] 15 mg PO DAILY 02/17/17 10:03 Advance diet as tolerated . Physical Therapy Eval and Treatment [PT] Routine 02/17/17 11:45 oxyCODONE HCL IR [Oxy Ir] 5 - 10 mg PO Q3H PRN 02/17/17 11:46 LORazepam [Ativan] 1 mg PO Q8H PRN 02/17/17 19:00 Sennosides/Docusate Sodium [Analy-Colace] 1 tab PO DAILY 02/17/17 Lunch Regular [DIET]
== END 2017-02-18 10:09 | disposition home or self-care (01) ==
LOC: ER 23:03 → IN 02-16 02:26
PROVIDERS: ADMIT Surgery; ATTEND Surgery
DX: K80.12 Calculus of gallbladder with acute and chronic cholecystitis without obstruction (principal); K56.7 Ileus, unspecified; R32 Unspecified urinary incontinence; S82.891E Other fracture of right lower leg, subsequent encounter for open fracture type I or II with routine healing
CPT/HCPCS: 74177; 80048; 80076; 83690; 85025; 86677; 93005; 93010; 96361; 96365; 96367; 96375; 96376; 99285; A0425; A0427; G0378; G8978; G8979; J1170; J1885; J2060; J2270; J2405; J2543; J2765; J3360; J7030; J7120